=== PATIENT | female | born 1980 | race African-American/Black ===

== ENCOUNTER 2018-01-12 08:31 | Emergency (ER) | payer OTHER ==
[~2018-01-12] VITALS: Ht 162.6 cm; Wt 54.4 kg
[~2018-01-12 08:31] MED LIST: ALBUTEROL SULF8.5 GM INH; ALPRAZOLAM0.25 MG ORAL; AMITRIPTYLINE25 MG ORAL; AZITHROMYCIN250 MG ORAL; METRONIDAZOLE500 MG ORAL; NITROFURANTOIN100 M2 ORAL; NKM; PROMETHAZINE-D118 ML ORAL; RISPERDAL2 MG ORAL
[2018-01-12] MEDS ORDERED: SEROQUEL200 MG ORAL (08:38)
[2018-01-12] MEDS ORDERED: SERTRALINE HCL50 MG ORAL (08:38)
[2018-01-12 08:52] VITALS: BP 121/86
--- NOTE | 2018-01-12 09:07 | Emergency Room Report ---
History of Present Illness General Chief Complaint: Flu Like Symptoms Source: Patient Present Illness HPI Patient is a 37-year-old female who presented after increased cough and difficulty breathing. Patient gradual onset of symptoms. The patient reported having increased abdominal discomfort as well as diarrhea. She denies any fever. She reports worsening cough for the past 2 days. She had associated sore throat. The she denies any neck stiffness. Allergies: Coded Allergies: No Known Allergies (Unverified , 08/28/17) Patient History Past Medical History: see triage record Last Menstrual Period: 12/22/17 Reviewed Nursing Documentation: PMH: Agreed; PSxH: Agreed Nursing Documentation-[facility] Past Medical History: No Stated History Hx Diabetes: Yes History Of Psychiatric Problem: Yes - schizoprenia Review of Systems All Other Systems: negative except mentioned in HPI Physical Exam Vital Signs Date Time Temp Pulse Resp B/P (MAP) Pulse Ox O2 Delivery O2 Flow Rate FiO2 01/12/18 08:34 98.9 110 18 119/83 95 Room Air 99.0 General Appearance: well appearing, no apparent distress, alert, GCS 15 Head: normocephalic, atraumatic ENT: hearing grossly normal, normal voice Neck: full range of motion, supple Respiratory: no respiratory distress, speaking full sentences, wheezing, expiration Cardiovascular #1: no edema Gastrointestinal: normal bowel sounds, non tender, soft Genitourinary: no CVA tenderness Musculoskeletal: normal inspection, back normal, digits/nails normal, gait/ station normal, no calf tenderness Neurologic: normal inspection, alert, oriented x3, responsive, 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 Differential diagnosis included but was not limited to bronchitis, pneumonia, pulmonary embolism, pericarditis, asthma, foreign body.The patient was noted to have evidence of acute bronchitis. Patient was given breathing treatment with some improvement. test was noted be negative. Patient given prescriptions medications Labs Test 01/12/18 09:10 Urine HCG, Qualitative Negative (NEGATIVE) Chest X-Ray Diagnostic Results Chest X-Ray Diagnostic Results : Chest X-Ray Ordered: Yes # of Views/Limited/Complete: 1 View Indication: Shortness of Breath EP Interpretation: Yes Interpretation: no consolidation, no effusion, no pneumothorax, no acute cardiopulmonary disease Impression: No acute disease Electronically Signed by: Electronically signed by Dr. Dimas Adams M.D. Last Vital Signs Date Time Temp Pulse Resp B/P (MAP) Pulse Ox O2 Delivery O2 Flow Rate FiO2 01/12/18 08:52 98.8 100 18 121/86 96 Room Air 98.8 Status: improved Disposition: HOME, SELF-CARE Condition: Stable Scripts Acetaminophen* (ACETAMINOPHEN EXTRA STRENGTH*) 500 Mg Tablet 500 MG ORAL Q8H PRN for Fever/Headache/Mild Pain, #15 TAB Prov: Dimas Adams MD 01/12/18 Guaifenesin/Dextromethorphan (Guaifenesin Dm Syrup) 5 Ml Syrup 1 TSP ORAL Q8H, #118 ML 0 Refills Prov: Dimas Adams MD 01/12/18 Albuterol Sulfate* (ALBUTEROL SULFATE MDI*) 8.5 Gm Hfa.aer.ad 2 PUFF INH Q6H, #1 EA 0 Refills Prov: Dimas Adams MD 01/12/18 Dimas Adams MD January 12, 2018 09:07
[2018-01-12] MEDS ORDERED: Albuterol/Ipratropium 3ml neb HHN ONE (09:15)
[2018-01-12] MEDS ORDERED: GUAIFENESIN DM118 M1 ORAL (10:01)
[2018-01-12] MEDS ORDERED: ALBUTEROL SULF8.5 GM INH (10:01)
[2018-01-12] MEDS ORDERED: ACETAMINOPHEN500 M3 ORAL (10:06)
[2018-01-12 10:10] VITALS: BP 121/86
--- NOTE | 2018-01-12 11:24 | Diagnostic Imaging Report ---
EXAM: XR Chest, 1 View CLINICAL HISTORY: SOB TECHNIQUE: Frontal view of the chest. COMPARISON: No relevant prior studies available. FINDINGS: Lungs: Unremarkable. No consolidation. Pleural space: Unremarkable. No pneumothorax. Heart: Unremarkable. No cardiomegaly. Mediastinum: Unremarkable. Bones/joints: Unremarkable. IMPRESSION: No evidence of acute pulmonary disease.
== END 2018-01-12 10:10 | disposition home or self-care (01) ==
LOC: EMR 09:18
DX: J06.9 Acute upper respiratory infection, unspecified (principal); E11.9 Type 2 diabetes mellitus without complications
CPT/HCPCS: 71045; 81025; 94640; 99284; J7620

== ENCOUNTER 2018-09-23 08:06 | Emergency (ER) | payer OTHER ==
[~2018-09-23] VITALS: Ht 165.1 cm; Wt 56.7 kg
[~2018-09-23 08:06] MED LIST changes: +ACETAMINOPHEN500 M3 ORAL; +GUAIFENESIN DM118 M1 ORAL; +SEROQUEL200 MG ORAL; +SERTRALINE HCL50 MG ORAL
[2018-09-23] MEDS ORDERED: ARIPIPRAZOLE10 MG PO (08:14)
[2018-09-23 08:15] VITALS: BP 124/82
--- NOTE | 2018-09-23 08:16 | NUR ---
ED Nurse Note: Patient walked into ED from home, patient reports history of schizophrenia, came here for medication refill - abilify 10mg, 2 tablets daily.
--- NOTE | 2018-09-23 08:41 | Emergency Room Report ---
History of Present Illness General Chief Complaint: Medication Refill Source: Patient Present Illness HPI Patient states that she is out of her Abilify. She states she normally takes 10 mg twice daily. She has a history of schizophrenia. She states she is unable to get and see her psychiatrist. She has no other complaints. Allergies: Coded Allergies: No Known Allergies (Unverified , 09/23/18) Patient History Past Medical History: see triage record, DM, psych hx - schizophrenia Social History: Denies: smoking, alcohol use, drug use Last Menstrual Period: Aug 2018 Now: No Reviewed Nursing Documentation: PMH: Agreed; PSxH: Agreed Nursing Documentation-PMH Past Medical History: No History, Except For Hx Diabetes: Yes Review of Systems All Other Systems: negative except mentioned in HPI Physical Exam Vital Signs Date Time Temp Pulse Resp B/P (MAP) Pulse Ox O2 Delivery O2 Flow Rate FiO2 09/23/18 08:09 98.2 97 16 124/82 97 Room Air Sp02 EP Interpretation: reviewed, normal General Appearance: no apparent distress, alert, GCS 15, non-toxic Head: normocephalic, atraumatic Eyes: bilateral eye normal inspection ENT: hearing grossly normal, normal pharynx, no angioedema, normal voice Neck: normal inspection, full range of motion Respiratory: no respiratory distress, no retraction, no accessory muscle use, speaking full sentences Rectal: deferred Musculoskeletal: back normal, gait/station normal, normal range of motion, non- tender Neurologic: alert, oriented x3, responsive, motor strength/tone normal, speech normal Psychiatric: judgement/insight normal, memory normal, mood/affect normal, no suicidal/homicidal ideation Skin: normal color, no rash, warm/dry, well hydrated Medical Decision Making Diagnostic Impression: Primary Impression: Encounter for medication refill ER Course The patient presents for refill of her Abilify. The patient was educated on the dangers of getting her care at the emergency department and that she needs to see her primary psychiatrist regularly. I did refill the patient's Abilify for 30 days. The patient was instructed to receive all further refills from her primary care physician and psychiatrist so that she can be monitored appropriately. She indicated understanding and intention to do so. Last Vital Signs Date Time Temp Pulse Resp B/P (MAP) Pulse Ox O2 Delivery O2 Flow Rate FiO2 09/23/18 08:15 98.2 97 16 124/82 97 Room Air Status: improved Disposition: HOME, SELF-CARE Condition: Improved Patient Instructions: Medicine Refill at the Emergency Department Juana Dawson DO Sep 23, 2018 08:41
[2018-09-23] MEDS ORDERED: ABILIFY10 MG ORAL (08:42)
[2018-09-23 08:45] VITALS: BP 124/82
--- NOTE | 2018-09-23 08:46 | NUR ---
ED Nurse Note: pt cleared to d/c per ER provider order, pt discharge instruction provided w/prescription sent electronically, pt advised to follow up with pcp or return to ed if s/s worsen or new s/s develop, pt education done via discussion and hand out, patient verbalized understanding. ID wristband removed, pt vss, ambulatory w/ steady gait, respiration even and unlabored, airway intact, pt left with all belongings.
== END 2018-09-23 08:46 | disposition home or self-care (01) ==
LOC: EMR 08:30
DX: Z76.0 Encounter for issue of repeat prescription (principal); E11.9 Type 2 diabetes mellitus without complications; F20.9 Schizophrenia, unspecified
CPT/HCPCS: 99282

== ENCOUNTER 2018-09-27 09:30 | Emergency (ER) | payer OTHER ==
[~2018-09-27] VITALS: Ht 165.1 cm; Wt 59.0 kg
[~2018-09-27 09:30] MED LIST changes: +ABILIFY10 MG ORAL; +ARIPIPRAZOLE10 MG PO
[2018-09-27 09:36] VITALS: BP 109/76
--- NOTE | 2018-09-27 09:36 | NUR ---
ED Nurse Note: AMBULATED IN TO ER DUE TO BILATERAL FEET PAIN 10/10 X 1WEEK. DENIES ANY RECENT INJURIES, NO TRAUMA.
--- NOTE | 2018-09-27 09:40 | NUR ---
ED Nurse Note: PT C/O NOT HAVING A BIGGER ROOM FOR PT AND HER MOTHER. EDUCATED PT THAT SHE IS OK TO BE IN [facility]STTR[facility] AND ALL OTHER ROOMS ARE OCCUPIED. CHAIR IS PROVIDE FOR PT'S MOTHER.
--- NOTE | 2018-09-27 10:02 | NUR ---
ED Nurse Note: PT ASKED WHEN THE DOCTOR IS COMING TO SEE HER. EDUCATED PT THAT ERMD IS SEEING ANOTHER PT RIGHT NOW AND WILL SEE THE PATIENT WHENEVER HE IS READY. PT STATES,"I HOPE HE'S READY BY NOW BECAUSE I AM IN PAIN".
--- NOTE | 2018-09-27 10:20 | NUR ---
ED Nurse Note: PT REFUSED TO GET THE TORADOL MEDICATION WHEN DR. Jack OFFERED. FIVE MIN LATER, PT REQUESTED TORADOL. TORADOL WAS GIVEN PT'S WISH.
[2018-09-27] MEDS ORDERED: TRAMADOL HCL50 MG ORAL (10:24)
[2018-09-27] MEDS ORDERED: Ketorolac 30mg Inj IM ONE (10:30)
--- NOTE | 2018-09-27 10:30 | NUR ---
ED Nurse Note: PT REQUESTED TO CHECK HER BS. PT STATES, "I JUST WANT TO KNOW JUST BECAUSE". EDUCATED PT THAT ACCUCHEK REQUIRES DOCTOR'S ORDER. NOTIFIED . NO NEW ORDER RECEIVED. EDUCATED PT THAT NO ORDER FOR ACCUCHECK RECEIVED AND PT HAS TO FOLLOW UP WITH PCP FOR THAT DUE TO EMERGENCY ROOM FOCUSES ON MAIN COMPLAINT OF THIS VISIT. PT STATES, "I UNDERSTAND THAT. YOU DON'T HAVE SPILL ALL THAT WITH ME."
[2018-09-27 10:33] VITALS: BP 109/76
--- NOTE | 2018-09-27 10:34 | NUR ---
ED Nurse Note: Pt cleared DC by Dr. Jack. Pt is A/Ox4, VSS, DC instruction and prescriptions given, pt verbalized understanding. ID wristband removed. All belongings given to pt. Pt ambulated out of ER with steady gait.
--- NOTE | 2018-09-27 10:45 | NUR ---
Note citlaly in EDM - 09/27/18 at 1100 by [email or web address] ED Nurse Note: PT ASKED WHEN THE DOCTOR IS COMING TO SEE HER. EDUCATED PT THAT ERMD IS SEEING ANOTHER PT RIGHT NOW AND WILL SEE THE PATIENT WHENEVER HE IS READY. PT STATES,"I HOPE HE'S READY BY NOW BECAUSE I AM IN PAIN".
--- NOTE | 2018-09-27 12:28 | Emergency Room Report ---
History of Present Illness General Chief Complaint: Pain Source: Patient Present Illness HPI 37-year-old female presents ED for evaluation. Patient is complaining of bilateral foot pain and body pain. States she's had this for about one week. Pain is dull, 8 out of 10, nonradiating. States she's taken [id number] Tylenol without relief. Denies any fall or trauma. Denies any fevers chills. Denies any sore throat. Denies dysuria or hematuria. No other aggravating relieving factors. Denies any other associated symptoms Allergies: Coded Allergies: No Known Allergies (Unverified , 09/27/18) Patient History Past Medical History: psych hx Past Surgical History: none Pertinent Family History: none Social History: Denies: smoking, alcohol use, drug use Last Menstrual Period: aug 2018 Now: No Immunizations: UTD Reviewed Nursing Documentation: PMH: Agreed; PSxH: Agreed Nursing Documentation-PMH Past Medical History: No History, Except For Hx Diabetes: No History Of Psychiatric Problem: Yes - SCHIZO Review of Systems All Other Systems: negative except mentioned in HPI Physical Exam Vital Signs Date Time Temp Pulse Resp B/P (MAP) Pulse Ox O2 Delivery O2 Flow Rate FiO2 09/27/18 09:36 98.4 101 16 109/76 99 Room Air Sp02 EP Interpretation: reviewed, normal General Appearance: no apparent distress, alert, GCS 15, non-toxic Head: normocephalic Eyes: bilateral eye normal inspection, bilateral eye PERRL ENT: normal ENT inspection Neck: normal inspection Respiratory: chest non-tender, lungs clear, normal breath sounds, speaking full sentences Cardiovascular #1: regular rate, rhythm, no edema Gastrointestinal: normal inspection Rectal: deferred Genitourinary: no CVA tenderness Musculoskeletal: normal inspection Neurologic: alert, oriented x3, responsive, motor strength/tone normal, sensory intact, speech normal Psychiatric: depressed affect, anxious Skin: normal inspection Lymphatic: normal inspection Medical Decision Making Diagnostic Impression: Primary Impression: Muscular pain ER Course Hospital Course 37-year-old female ED complaining of bilateral foot pain and body pain Differential diagnoses include: muscle pain, fracture, contusion Clinical course Patient placed on stretcher. After initial history, physical exam reveals a female in no acute distress. There is no bony tenderness. No palpable pain. Remainder physical exam unremarkable. Vital stable. Patient afebrile nontoxic appearing Reviewed EMR. Patient has been here numerous times for various vague complaints. Has history of anxiety and psych Given Toradol in ED. on reassessment pain is improved Reassurance given. Patient kept asking for other vague complaints. asking us to check her sugar. she is not a diabetic. Myself and the nurse explained this to the patient. Patient became very upset as she received her discharge papers. I spent the patient that she needs to see a PMD for routine medical issues Diagnosis - muscular pain Stable and discharged home with Rx Tramadol. Instructed to followup with PMD. Return to ED if symptoms recur or worsen Last Vital Signs Date Time Temp Pulse Resp B/P (MAP) Pulse Ox O2 Delivery O2 Flow Rate FiO2 09/27/18 10:33 98.4 99 16 109/76 99 Room Air Status: improved Disposition: HOME, SELF-CARE Condition: Stable Scripts Tramadol Hcl* (ULTRAM*) 50 Mg Tablet 50 MG ORAL Q6H PRN for For Pain for 3 Days, TAB 0 Refills Prov: Franck Boggs MD 09/27/18 Referrals: [facility] Patient Instructions: Chronic Pain Franck Boggs MD Sep 27, 2018 12:27
== END 2018-09-27 10:34 | disposition home or self-care (01) ==
LOC: EMR 10:01
DX: M79.18 Myalgia, other site (principal)
CPT/HCPCS: 96372; 99283; J1885

== ENCOUNTER 2018-10-28 15:42 | Emergency (ER) | payer OTHER ==
[~2018-10-28] VITALS: Ht 165.1 cm; Wt 59.4 kg
[~2018-10-28 15:42] MED LIST changes: +TRAMADOL HCL50 MG ORAL
[2018-10-28] MEDS ORDERED: IBUPROFEN800 MG ORAL (16:05)
--- NOTE | 2018-10-28 16:09 | NUR ---
ED Nurse Note: pt. came with chronic body pain and wants ibuprofen prescription. A + O x4. ambulatory. Skin warm to touch.
[2018-10-28 16:10] VITALS: BP 120/87
--- NOTE | 2018-10-28 16:11 | NUR ---
ER DISCHARGE NOTE: Patient is cleared to be discharged per ERMD, pt is aox4, on room air, with stable vital signs. pt was given dc and prescription instructions, pt was able to verbalize understanding, pt id band removed without complications. pt is able to ambulate with steady gait. pt took all belongings.
--- NOTE | 2018-10-28 16:41 | Emergency Room Report ---
History of Present Illness General Chief Complaint: Pain Source: Patient Present Illness HPI Patient has history of occasional myalgias body aches arthritis. Patient usually takes ibuprofen. Patient ran out of ibuprofen. Patient presents emergency department today requesting ibuprofen. Patient denies any fever nausea vomiting or chills. She states that she is improved tell has had extensive workup she denies any kidney issues. No other complaints are noted. Symptoms noted moderate moderate. No other modifying factors. No other associated signs and symptoms. No other complaints were noted. Allergies: Coded Allergies: No Known Allergies (Unverified , 09/27/18) Patient History Past Medical History: none Past Surgical History: none Pertinent Family History: none Social History: Denies: smoking, alcohol use, drug use Last Menstrual Period: 10/08/18 Reviewed Nursing Documentation: PMH: Agreed; PSxH: Agreed Nursing Documentation-PMH Past Medical History: No Stated History Hx Diabetes: No Review of Systems All Other Systems: negative except mentioned in HPI Physical Exam Vital Signs Date Time Temp Pulse Resp B/P (MAP) Pulse Ox O2 Delivery O2 Flow Rate FiO2 10/28/18 15:54 98.4 105 17 116/80 98 Room Air Sp02 EP Interpretation: reviewed, normal General Appearance: normal inspection, well appearing, no apparent distress, alert Head: atraumatic Eyes: bilateral eye normal inspection ENT: normal ENT inspection, hearing grossly normal, normal voice Neck: normal inspection, full range of motion, supple, no bony tend Respiratory: normal inspection, lungs clear, normal breath sounds, no respiratory distress, no retraction, no wheezing Cardiovascular #1: regular rate, rhythm, no edema Gastrointestinal: normal inspection, normal bowel sounds, non tender, soft, no guarding, no hernia Genitourinary: no CVA tenderness Musculoskeletal: normal inspection, back normal, normal range of motion Neurologic: normal inspection, alert, responsive, speech normal Psychiatric: normal inspection, judgement/insight normal, mood/affect normal Skin: normal inspection, normal color, no rash Medical Decision Making Diagnostic Impression: Primary Impression: Pain Additional Impression: Muscular pain ER Course Patient presents emergency department today complaint bodyaches. Differential considerations include myalgias, arthritis, muscle strain. Patient's exam showed benign. Patient is nontoxic-appearing. We'll provide patient with discussion for Motrin.Patient is advised to follow up with primary doctor in 2- 3 days and return the emergency room for any worsening symptoms and as needed. Last Vital Signs Date Time Temp Pulse Resp B/P (MAP) Pulse Ox O2 Delivery O2 Flow Rate FiO2 10/28/18 16:10 98.2 88 22 120/87 98 Room Air Status: improved Disposition: HOME, SELF-CARE Condition: Stable Scripts Ibuprofen* (MOTRIN*) 800 Mg Tablet 800 MG ORAL Q8H, #30 TAB 0 Refills Prov: Ricco Palacio MD 10/28/18 Patient Instructions: Muscle Strain, [id number] Ricco Palacio MD Oct 28, 2018 16:41
== END 2018-10-28 16:11 | disposition home or self-care (01) ==
LOC: EMR 16:03
DX: M79.10 Myalgia, unspecified site (principal)
CPT/HCPCS: 99282

== ENCOUNTER 2019-05-24 07:04 | Emergency (ER) | payer OTHER ==
[~2019-05-24] VITALS: Ht 165.1 cm; Wt 61.2 kg
[~2019-05-24 07:04] MED LIST changes: +IBUPROFEN800 MG ORAL
[2019-05-24 07:30] VITALS: BP 108/90
--- NOTE | 2019-05-24 07:40 | NUR ---
ED Nurse Note: Pt. AAOx4, vss, with no signs of distress. Patient walked into ED c/o left eye pain that has been an on going issue for the past 2 days, states that she has a bump on the bottom of her eyebrows
[2019-05-24] MEDS ORDERED: GENTAMICIN SULF15 G2 TOPIC (07:52)
[2019-05-24 08:00] VITALS: BP 108/90
--- NOTE | 2019-05-24 08:01 | NUR ---
ER DISCHARGE NOTE: Patient is cleared to be discharged per ERMD, pt is aox4, on room air, with stable vital signs. pt was given dc and prescription instructions, pt was able to verbalize understanding, pt id band removed. pt is able to ambulate with steady gait. pt took all belongings.
--- NOTE | 2019-05-24 08:06 | Emergency Room Report ---
History of Present Illness General Chief Complaint: Eye Problems Source: Patient Present Illness HPI Patient presents with 2 different complaints initially complaining of redness above the left eyelid Patient reports that she noticed the area for the past 2 days has some minimal discomfort when touching the area denies any change with vision Denies any change with the color of the eye denies any headache Patient also reports cough over the past 2 days Somewhat productive now Denies any shortness of breath denies any back or flank pain denies any recent travel Denies any fevers or rash Allergies: Coded Allergies: No Known Allergies (Unverified , 09/27/18) Patient History Past Medical History: see triage record Last Menstrual Period: 05/16/19 Reviewed Nursing Documentation: PMH: Agreed; PSxH: Agreed Nursing Documentation-PMH Past Medical History: No History, Except For Hx Diabetes: No Review of Systems All Other Systems: negative except mentioned in HPI Physical Exam Vital Signs Date Time Temp Pulse Resp B/P (MAP) Pulse Ox O2 Delivery O2 Flow Rate FiO2 05/24/19 07:19 97.9 80 18 111/77 (88) 05/24/19 07:30 Room Air Sp02 EP Interpretation: reviewed, normal General Appearance: well appearing, no apparent distress Head: normocephalic, atraumatic Eyes: left eye other - Small erythematous lesion just above the left mid eyelid consistent with early stye; bilateral eye PERRL, bilateral eye EOMI ENT: hearing grossly normal, normal pharynx, TMs + canals normal, uvula midline Neck: full range of motion, supple, no meningismus, no bony tend Respiratory: lungs clear, normal breath sounds, no rhonchi, no respiratory distress, no retraction, no accessory muscle use Cardiovascular #1: normal peripheral pulses, regular rate, rhythm, no edema, no gallop, no JVD, no murmur Musculoskeletal: normal inspection Neurologic: oriented x3, responsive Psychiatric: mood/affect normal Skin: other - as Above Lymphatic: normal inspection, no adenopathy Medical Decision Making Diagnostic Impression: Primary Impression: sty Additional Impression: bronchitis ER Course Given the history and presentation multiple differentials are in consideration the patient's exam appears to be consistent with stye in the left eye Patient's lung sounds are clear respirations appropriate appears to have findings consistent with early bronchitis patient will have initial conservative outpatient trial and return with any changes Last Vital Signs Date Time Temp Pulse Resp B/P (MAP) Pulse Ox O2 Delivery O2 Flow Rate FiO2 05/24/19 08:00 98.0 70 18 108/90 Room Air Status: unchanged Disposition: HOME, SELF-CARE Condition: Stable Scripts Gentamicin Sulfate (GENTAMICIN SULFATE*) 15 Gm Oint...g. 1 INCH TOPIC BID for 7 Days, #15 GM 0 Refills Prov: Kyler Mills DO 05/24/19 Referrals: [facility]ERR[facility] (PCP) Patient Instructions: Stye, Acute Bronchitis, [id number] Additional Instructions: Patient is provided with the discharge instructions notified to follow up with primary doctor in the next 2-3 days otherwise return to the er with any worsening symptoms. Please note that this report is being documented using [employer] technology. This can lead to erroneous entry secondary to incorrect interpretation by the dictating instrument. Kyler Mills DO May 24, 2019 08:06
== END 2019-05-24 08:00 | disposition home or self-care (01) ==
LOC: EMR 07:23
DX: H00.014 Hordeolum externum left upper eyelid (principal); J40 Bronchitis, not specified as acute or chronic
CPT/HCPCS: 99282

== ENCOUNTER 2020-08-27 07:58 | Emergency (ER) | payer OTHER ==
[~2020-08-27] VITALS: Ht 165.1 cm; Wt 61.2 kg
[~2020-08-27 07:58] MED LIST changes: +ACETAMINOPHEN325 M1 ORAL; +GENTAMICIN SULF15 G2 TOPIC; +IBUPROFEN600 MG ORAL; +METFORMIN HCL500 M1 ORAL
[2020-08-27 08:16] VITALS: BP 139/87
[2020-08-27] MEDS ORDERED: ABILIFY15 MG ORAL (08:22)
[2020-08-27 08:25] VITALS: BP 134/84
--- NOTE | 2020-08-27 08:26 | Emergency Room Report ---
History of Present Illness General Chief Complaint: Medication Refill Source: Patient Present Illness HPI Patient is a 39-year-old female presents to the ER requesting medication refill. Patient states that she takes Abilify 50 mg p.o. daily and has an appointment with her doctor on the but needs a refill until then as her physician is out of town. She denies any other acute complaints. Allergies: Coded Allergies: No Known Allergies (Unverified , 09/27/18) COVID-19 Screening Contact w/high risk pt: No Experienced COVID-19 symptoms?: No COVID-19 Testing performed SSIS SSRS DEVELOPER: No Patient History Reviewed Nursing Documentation: PMH: Agreed; PSxH: Agreed Nursing Documentation-PMH Past Medical History: No History, Except For Hx Diabetes: Yes History Of Psychiatric Problem: Yes - schizo Review of Systems All Other Systems: negative except mentioned in HPI Physical Exam Vital Signs Date Time Temp Pulse Resp B/P (MAP) Pulse Ox O2 Delivery O2 Flow Rate FiO2 08/27/20 08:16 98.6 101 20 132/90 (104) 97 Room Air Sp02 EP Interpretation: reviewed, normal General Appearance: no apparent distress, alert, GCS 15, non-toxic Head: normocephalic, atraumatic Eyes: bilateral eye normal inspection, bilateral eye PERRL ENT: hearing grossly normal, normal pharynx, no angioedema, normal voice Neck: full range of motion, supple/symm/no masses Respiratory: chest non-tender, lungs clear, normal breath sounds, speaking full sentences Cardiovascular #1: regular rate, rhythm, no edema Gastrointestinal: non tender, soft Rectal: deferred Musculoskeletal: normal range of motion Neurologic: distance education director III-XII nml as tested, oriented x3 Psychiatric: no suicidal/homicidal ideation Skin: no rash Lymphatic: no adenopathy Medical Decision Making Diagnostic Impression: Primary Impression: Encounter for medication refill ER Course After discussing risks and benefits of further diagnostics, treatment plans, as well as indications for and risks of admission, the patient is agreeable to being discharged home. I have explained that their evaluation and treatment in the emergency department today is an important step towards them achieving better health but that their evaluation today is not intended to replace further evaluation and treatment by a physician in their local clinic. I have explained that while the current findings suggest no immediate life threatening emergency they will require further evaluation and treatment by a physician of their choice in their area. They understand that it will be necessary for them to review the final reports of their ED visit with their clinic physician. We have reviewed indications for return to the Emergency Department. I have explained that additional time may need to pass and/or additional testing as an outpatient may be necessary before a definitive diagnosis can be made. They tell me they are willing to follow up as instructed within the timeframe I recommend. They appear to understand what we discussed. Additionally they understand that if they are unable to be seen by an outpatient physician they are welcome, and in fact should, return to the Emergency Department for a repeat evaluation. The patient is stable at time of discharge. Last Vital Signs Date Time Temp Pulse Resp B/P (MAP) Pulse Ox O2 Delivery O2 Flow Rate FiO2 08/27/20 08:16 98.6 101 20 132/90 (104) 97 Room Air Disposition: HOME, SELF-CARE Condition: Stable Scripts Aripiprazole* (ABILIFY*) 15 Mg Tablet 15 MG ORAL DAILY for 7 Days, TAB 0 Refills Prov: Amber Rai M.D. 08/27/20 Referrals: [facility],REFERRING (PCP) [facility] - Peds ER - Patient Instructions: Medicine Refill at the Emergency Department Additional Instructions: The patient was provided with discharge instructions, notified to follow-up with a primary care doctor and or specialist in the next 24-48 hours, and to return to the ED if they have worsening of their symptoms. Please note that this report is being documented using W-21 technology. This can lead to erroneous entry secondary to incorrect interpretation by the dictating instrument. Amber Rai M.D. Aug 27, 2020 08:26
== END 2020-08-27 08:25 | disposition home or self-care (01) ==
LOC: EMR 08:13
DX: Z76.0 Encounter for issue of repeat prescription (principal); E11.9 Type 2 diabetes mellitus without complications; F20.9 Schizophrenia, unspecified
CPT/HCPCS: 99282